=== PATIENT | female | born 1930 | race Caucasian/White ===

== ENCOUNTER → 2016-09-11 | Day surgery (SDC) | payer OTHER, BC ==
[~2016-09-11] VITALS: Ht 157.5 cm; Wt 54.4 kg
[~2016-09-11] MED LIST: APAP500 PO; ARTHRITIS PAIN650 M3 PO; CALCIUM 500 +1 EAC5 PO; CARDIZEM CD180 MG PO; DILTIAZEM 24HR240 M2 PO; FEOSOL325 M1 PO; LIDODERM 5%1 PATC1 TRANSDERM; LOPRESSOR50 PO; METOPROLOL TART25 MG PO; POTASSIUM20 PO; PRADAXA150 MG PO; PRADAXA75 MG PO; PRILOSEC40 MG PO; TOPROL XL50 MG PO; TRAMADOL HCL50 MG PO; TYLENOL325 MG PO
--- NOTE | ~2016-09-11 | O ---
[facility] [place] [address] OPERATIVE REPORT Name: ANYA SHEPARD Room #: REG [facility].#: [id number] Admission: 09/11/16 Attend Phys: Jcarlos Diaz MD Discharge: Date of : 28 Report #: [id number] THIS REPORT FOR: //name// CC: Abdullahi Noyola MD [facility] Dominguez Diaz Adolfo Mcintosh MD DATE OF SERVICE: 09/11/2016 SURGEON: Jcarlos Diaz MD OPHTHALMIC PATHOLOGIST: None. PREOPERATIVE DIAGNOSIS: Bilateral upper lid dermatochalasia with superior visual field defect. POSTOPERATIVE DIAGNOSIS: Bilateral upper lid dermatochalasia with superior visual field defect. OPERATION PERFORMED: Bilateral upper lid functional blepharoplasty. ANESTHESIA: Local with IV sedation. COMPLICATIONS: None. INDICATIONS FOR SURGERY: This patient has acquired upper lid dermatochalasia with superior visual field loss both eyes because of excessive upper lid tissues to include skin and fat. Visual field testing demonstrates dense superior visual defects. Retesting with the upper lid elevated shows an improvement in visual field loss of over 30% and in excess of 12 degrees. The current procedures are undertaken in order to improve the patient's visual function. Informed consent was obtained to include but not limited to the loss of vision, bleeding, infection, scarring, failure to improve the problem and need for further surgery. DESCRIPTION OF OPERATION: The patient was taken to the operating room, where 2% Xylocaine with epinephrine mixed with equal parts of 0.75% Marcaine with Wydase was administered transcutaneously to each upper lid. The patient was then prepped and draped in the usual sterile fashion and a skin-marking pen was then utilized to outline an upper lid crease that was symmetrical on each side. Graefe forceps were then used to quantitate the redundant upper lid skin and it was similarly outlined. The incisions were then made with Bashir scissors and a skin-muscle flap removed from each side with high-temp cautery. [address] [address] OPERATIVE REPORT Name: MEGAN SHEPARDESTEPHANIA HORTAE Room #: REG [facility].#: [id number] Admission: 09/11/16 Attend Phys: Jcarlos Diaz MD Discharge: Date of : 28 Report #: [id number] was achieved with the monopolar cautery as it was throughout the case. The orbital septum was then identified and the central and medial fat pads were inspected. The redundant soft tissue was then sculpted with the monopolar cautery. The upper lid crease was then reformed with tightening of the pretarsal orbicularis muscle. The upper lid crease was then further reformed with multiple interrupted 6-0 chromic sutures. The skin was then closed with a running 6-0 plain gut suture. The wound was then cleaned and dressed with ophthalmic antibiotic ointment and a nonstick dressing. The patient was transported to the recovery area, where cold compresses were applied, having tolerated the procedure well with no anesthetic or operative complications being noted. <ELECTRONICALLY SIGNED> By: Jcarlos Diaz MD 09/18/16 0614 [id number] 1521 Jcarlos Diaz MD /nt
[2016-09-11 12:30] VITALS: BP 148/82
== END | disposition home or self-care (01) ==
LOC: OR 05:12
DX: H02.834 Dermatochalasis of left upper eyelid (principal); H02.831 Dermatochalasis of right upper eyelid; H53.462 Homonymous bilateral field defects, left side; H53.461 Homonymous bilateral field defects, right side; I10 Essential (primary) hypertension; I48.91 Unspecified atrial fibrillation; Z90.710 Acquired absence of both cervix and uterus; Z98.42 Cataract extraction status, left eye; Z98.41 Cataract extraction status, right eye; Z96.1 Presence of intraocular lens; Z98.890 Other specified postprocedural states; Z85.828 Personal history of other malignant neoplasm of skin
CPT/HCPCS: 50010; 50101; 50386; 50398; 51606; 51636; 56531; 62110; 62850; 70005

== ENCOUNTER 2017-07-13 15:13 | Emergency (ER) | payer OTHER, BC ==
[~2017-07-13] VITALS: Ht 157.5 cm; Wt 56.7 kg
[2017-07-13] MEDS ORDERED: TRAMADOL 50 MG50 MG PO ×2 (15:21→16:21)
== END 2017-07-13 16:45 | disposition home or self-care (01) ==
LOC: ER 15:13
DX: S01.01XA Laceration without foreign body of scalp, initial encounter (principal); I10 Essential (primary) hypertension; I48.91 Unspecified atrial fibrillation; Z90.710 Acquired absence of both cervix and uterus; Z88.8 Allergy status to other drugs, medicaments and biological substances; W10.8XXA Fall (on) (from) other stairs and steps, initial encounter; Y93.89 Activity, other specified; Y92.89 Other specified places as the place of occurrence of the external cause; Y99.8 Other external cause status

== ENCOUNTER → 2018-05-29 | Outpatient (CLI) | payer OTHER, BC ==
[~2018-05-29] VITALS: Ht 157.5 cm; Wt 54.4 kg
[~2018-05-29] MED LIST changes: +COZAAR 25 MG TA25 M1 PO; +TRAMADOL 50 MG50 MG PO
--- NOTE | ~2018-05-29 | P ---
[facility] [place] [address] PROCEDURE REPORT Name: ANYA SHEPARD Room #: REG [facility]#: [id number] Admission: 05/29/18 Attend Phys: Alexey Alvares Discharge: Date of : 28 Report #: [id number] THIS REPORT FOR: //name// CC: Alexey Meredith MD DATE OF SERVICE: 05/29/2018 PROCEDURE PERFORMED: Colonoscopy with biopsies. HISTORY OF PRESENT ILLNESS: The patient is an 87-year-old female with a history of polyps. Also, family history of colon cancer in her son. She is here for a 5-year followup. She denies any symptoms at this time. DESCRIPTION OF PROCEDURE: The risks and benefits of the procedure were explained to the patient, those risks including but not limited to bleeding, perforation, the risk of sedation. She understood these risks and gave informed consent. Sedation was given using propofol per Anesthesia. Next, a digital rectal exam was initially performed, which was normal. Next, using a standard Olympus colonoscope, the scope was placed in the patient's anus and advanced under direct vision to the cecum. The overall prep was good. The cecum and ileocecal valve were normal in appearance. Ascending colon was normal. In the transverse colon, a 4 mm sessile polyp was noted. This was removed with cold forceps, otherwise normal. Descending colon, two 3-4 mm sessile polyps were noted, both removed by cold forceps. In the sigmoid colon, multiple diverticula were noted, also a 3 mm sessile polyp, also removed by cold forceps. The rectal mucosa was normal. On retroflexion, no abnormalities were noted. The scope was then withdrawn and the procedure terminated. The patient tolerated the procedure well. IMPRESSION: 1. Small colonic polyps. 2. Sigmoid diverticulosis. 3. Otherwise, normal colonoscopy. RECOMMENDATIONS: 1. Await biopsy results. 2. The patient does not need repeat colonoscopy due to the patient's age. Thank you for allowing me to participate in her care. <ELECTRONICALLY SIGNED> By: Alexey Thapa MD 05/31/18 1530 1008 1412 Alexey Thapa MD /nt
--- NOTE | ~2018-05-29 | PATH ---
[facility] [place] [address] PATHOLOGY RPT PROCEDURE Name: ANYA HOPE Room #: REG [facility].#: [id number] Admission: 05/29/18 Date of : 28 Discharge: Report #: [id number] Path Case #: [id number] [facility] Accession Number: [id number] . 01 Material submitted: . PART A: BX OF POLYP AT TRANSVERSE COLON PART B: BX OF POLYP AT DESCENDING COLON X 2 PART C: BX OF POLYP AT SIGMOID COLON . 01 Clinical history: . Hx of polyps . 02 Diagnosis: A. Polyp, at transverse colon, endoscopic biopsy: - Tubular adenoma. - Negative for high grade dysplasia. . B. Polyp x 2, descending colon, endoscopic biopsy: - Both fragments showing tubular adenoma. - Negative for high grade dysplasia. . C. Polyp, at sigmoid colon, endoscopic biopsy: - Tubular adenoma. - Negative for high grade dysplasia. (IUV/db; 05/30/18) LBQ/05/30/2018 . 02 Electronically signed: . Jaelyn Parra MD, Pathologist NPI- [id number] . 01 Gross description: . A. Received in formalin labeled "Marilou Hopetapanmichele, BX of polyp at transverse colon," is a single segment of barlow soft tissue measuring 0.5 cm in maximum dimension. The specimen is entirely submitted in cassette A1. . B. Received in formalin labeled "Jayy Rumamichele, BX of polyp at descending colon x2," are 2 segments of barlow soft tissue measuring 0.8 x 0.3 x 0.3 cm in aggregate dimensions and ranging from 0.3 to 0.5 cm in maximum dimension. The specimen is submitted entirely in cassette B1. . C. Received in formalin labeled "Jayy Rumamichele, BX of polyp at sigmoid colon," is a single segment of barlow soft tissue measuring 0.3 cm in maximum dimension. The specimen is entirely submitted in cassette C1. (TSD; 05/29/2018) TOB/TOB . [address] [address] PATHOLOGY RPT PROCEDURE Name: JAYYMARILOUESTEPHANIA ALVARES Room #: REG [facility].#: [id number] Admission: 05/29/18 Date of : 28 Discharge: Report #: [id number] Path Case #: [id number] Pathologist provided ICD-10: D12.3, D12.4, D12.5 . 02 CPT . 466051, 882735, 948382 Specimen Comment: A courtesy copy of this report has been sent to Specimen Comment: [phone], . Specimen Comment: Report sent to / DR OSORIO Specimen Comment: A duplicate report has been generated due to demographic updates. Performed at: [address] [facility], [place] [id number] MD Camden Rosales MD Phone: [phone] Performed at: [address] [id number] MD Jaelyn Parra MD Phone: [phone]
== END | disposition home or self-care (01) ==
LOC: GI 08:32
DX: Z12.11 Encounter for screening for malignant neoplasm of colon (principal); Z86.010 Personal history of colon polyps; Z80.0 Family history of malignant neoplasm of digestive organs; D12.3 Benign neoplasm of transverse colon; D12.4 Benign neoplasm of descending colon; D12.5 Benign neoplasm of sigmoid colon; K57.30 Diverticulosis of large intestine without perforation or abscess without bleeding; I10 Essential (primary) hypertension; I48.91 Unspecified atrial fibrillation; Z85.828 Personal history of other malignant neoplasm of skin; Z98.41 Cataract extraction status, right eye; Z98.42 Cataract extraction status, left eye; Z90.710 Acquired absence of both cervix and uterus; Z79.01 Long term (current) use of anticoagulants; Z98.890 Other specified postprocedural states; Z88.8 Allergy status to other drugs, medicaments and biological substances; Z79.899 Other long term (current) drug therapy
CPT/HCPCS: 62110; 62900